=== PATIENT | female | born 1975 | race African-American/Black ===

== ENCOUNTER 2020-12-14 09:30 | Emergency (ER) | payer MEDICAID ==
[~2020-12-14] VITALS: Ht 165.1 cm; Wt 91.0 kg
[2020-12-14 11:45] VITALS: BP 138/82
[2020-12-14] MEDS ORDERED: HYDROCODONE/ACETAMINOPHEN 5/325MG TABLET PO ONE (11:45)
[2020-12-14] MEDS ORDERED: CARISOPRODOL 350 MG TABLET PO ONE (11:45)
[2020-12-14] MEDS ORDERED: HYDR-4001 MT (12:57)
[2020-12-14] MEDS ORDERED: CARI250T MT ×2 (12:57)
[2020-12-14] MEDS ORDERED: CARI250T PO (13:22)
== END 2020-12-14 13:33 | disposition home or self-care (01) ==
LOC: ER 09:51
DX: M54.50 Low back pain, unspecified (principal); G89.29 Other chronic pain; J45.909 Unspecified asthma, uncomplicated; I10 Essential (primary) hypertension; Z98.890 Other specified postprocedural states; Z88.0 Allergy status to penicillin; Z88.2 Allergy status to sulfonamides
CPT/HCPCS: 81025; 99283

== ENCOUNTER 2020-12-21 19:06 | Emergency (ER) | payer MEDICAID ==
[~2020-12-21] VITALS: Ht 157.5 cm; Wt 91.0 kg
[~2020-12-21 19:06] MED LIST: CARI250T PO; HYDR-4001 MT
[2020-12-21 19:10] VITALS: BP 142/83
[2020-12-21] MEDS ORDERED: HYDR-4001 MT (20:05)
[2020-12-21] MEDS ORDERED: CARI250T MT (20:05)
== END 2020-12-21 21:09 | disposition home or self-care (01) ==
LOC: ER 19:06
DX: M54.50 Low back pain, unspecified (principal); G89.29 Other chronic pain; J45.909 Unspecified asthma, uncomplicated; I10 Essential (primary) hypertension; Z98.890 Other specified postprocedural states; Z79.899 Other long term (current) drug therapy; Z88.0 Allergy status to penicillin; Z88.2 Allergy status to sulfonamides
CPT/HCPCS: 99283

== ENCOUNTER 2021-01-04 10:11 | Emergency (ER) | payer MEDICAID ==
[~2021-01-04] VITALS: Ht 165.1 cm; Wt 91.0 kg
[~2021-01-04 10:11] MED LIST changes: +CARI250T MT
[2021-01-04 10:19] VITALS: BP 126/79
[2021-01-04] MEDS ORDERED: KETOROLAC 60MG/2ML VIAL IM ONE (10:30)
== END 2021-01-04 10:49 | disposition home or self-care (01) ==
LOC: ER 10:18
DX: M54.50 Low back pain, unspecified (principal); J45.909 Unspecified asthma, uncomplicated; I10 Essential (primary) hypertension; Z98.890 Other specified postprocedural states; Z79.899 Other long term (current) drug therapy; Z88.0 Allergy status to penicillin
CPT/HCPCS: 96372; 99283; J1885

== ENCOUNTER 2021-02-05 20:29 | Emergency (ER) | payer MEDICAID ==
[~2021-02-05] VITALS: Ht 162.6 cm; Wt 91.0 kg
[2021-02-05 20:39] VITALS: BP 130/84
[2021-02-05] MEDS ORDERED: CARI250T MT (21:05)
[2021-02-05] MEDS ORDERED: CELE100C97 MT (21:05)
[2021-02-05] MEDS ORDERED: CYCL10TA7 MT (21:06)
[2021-02-05] MEDS ORDERED: KETOROLAC 60MG/2ML VIAL IM ONE (21:15)
[2021-02-05] MEDS ORDERED: HYDROCODONE/ACETAMINOPHEN 5/325MG TABLET PO ONE (21:15)
== END 2021-02-05 21:45 | disposition home or self-care (01) ==
LOC: ER 20:29
DX: M54.50 Low back pain, unspecified (principal); J45.909 Unspecified asthma, uncomplicated; I10 Essential (primary) hypertension; I51.7 Cardiomegaly; F17.200 Nicotine dependence, unspecified, uncomplicated; Z88.0 Allergy status to penicillin; Z88.2 Allergy status to sulfonamides; Z79.899 Other long term (current) drug therapy; Z88.8 Allergy status to other drugs, medicaments and biological substances
CPT/HCPCS: 99283